=== PATIENT | male | born 2000 | race African-American/Black ===

== ENCOUNTER 2019-03-24 10:10 | Outpatient (REF) | payer MEDICAID, SELFPAY ==
[2019-03-24 12:37] LABS: Calculated LDL 112 mg/dL; Cholesterol 178 mg/dL (50-200); HDL Cholesterol 33 mg/dL (40-60); Triglyceride 166 mg/dL (30-150)
== END 2019-03-24 10:30 ==
LOC: NCHCN 10:10
PROVIDERS: PCP Nurse Practitioner Family; Visit Provider Nurse Practitioner Family
DX: Z68.53 Body mass index [BMI] pediatric, 85th percentile to less than 95th percentile for age (principal)
CPT/HCPCS: 80061; 83721